=== PATIENT | female | born 1970 ===

== ENCOUNTER 2017-12-29 07:49 | Day surgery (SDC) | payer OTHER ==
[~2017-12-29 07:49] MED LIST: NORVASC5 MG
== END 2017-12-29 16:45 | disposition home or self-care (01) ==
LOC: CIR.AMB 07:49
DX: D17.21 Benign lipomatous neoplasm of skin and subcutaneous tissue of right arm (principal)

== ENCOUNTER 2018-12-21 04:31 | Emergency (ER) | payer OTHER ==
[~2018-12-21] VITALS: Ht 162.6 cm; Wt 75.3 kg
[2018-12-21] MEDS ORDERED: TOPROL XL25 M1 (04:45)
== END 2018-12-21 07:40 | disposition home or self-care (01) ==
LOC: ER 04:31
DX: K29.70 Gastritis, unspecified, without bleeding (principal)

== ENCOUNTER 2018-12-22 00:36 | Inpatient (IN) | payer OTHER ==
[~2018-12-22] VITALS: Ht 162.6 cm; Wt 73.9 kg
[~2018-12-22 00:36] MED LIST changes: +TOPROL XL25 M1
[2018-12-24] MEDS ORDERED: LEVAQUIN500 MG PO (12:38)
[2018-12-24] MEDS ORDERED: ULTRACET PO (12:39)
== END 2018-12-24 14:40 | disposition home or self-care (01) | DRG 419 ==
LOC: ER 00:36 → SEC-K 08:41 → SURH 08:41
PROVIDERS: ADMIT Surgery
PROC: 0FT44ZZ Resection of Gallbladder, Percutaneous Endoscopic Approach (ICD-10-PCS; principal; 2018-12-22)
PROC: BW40ZZZ Ultrasonography of Abdomen (ICD-10-PCS; 2018-12-22)
DX: K80.10 Calculus of gallbladder with chronic cholecystitis without obstruction (principal); I10 Essential (primary) hypertension; K29.00 Acute gastritis without bleeding